=== PATIENT | male | born 1950 | race Caucasian/White ===

== ENCOUNTER 2024-05-06 17:33 | Inpatient (IN) ==
--- NOTE | 2024-05-06 17:41 | Emergency Department Note ---
ED Provider Note NAME: SIENNA MELENEDZ AGE: 73 SEX: M : 1950 ARRIVES VIA: Walk-In INFORMANT: [Patient][, ] ED PROVIDER(S): [Lev Stewart MD] CHIEF COMPLAINT: [] MEDICAL DECISION MAKING: [] Discussion w/ other healthcare providers: [None] Prior /Outside records reviewed: [none] Differential diagnosis: [] Diagnostics, as interpreted by me: ECG: [none] Cardiac monitoring: An order was placed for continuous cardiac monitoring. The monitor shows a rate of [] with [] rhythm. [Patient was placed on pulse oximetry] Medical decision rules: [none] Imaging studies: [I informally interpreted the patient's [] with formal report to follow.] [] HPI: [] PAST MEDICAL HISTORY: [See Below] PAST SURGICAL HISTORY: [See Below] SOCIAL HISTORY: [See Below] HOME MEDICATIONS: [See Below] ALLERGIES: [See Below] VITALS: [See Below] PHYSICAL EXAMINATION: GENERAL: NAD, non-toxic. EYE EXAM: Normal conjunctiva. PERRL, no anisocoria and EOM's grossly intact w/o pain. OROPHARYNX: Moist mucus membranes, grossly normal dentition. NECK: Trachea midline, no stridor. [Supple, no nuchal rigidity, no adenopathy, non-tender. No signs of meningismus. FROM of the neck with good chin to chest and neck extension.] LUNGS: Clear to auscultation. Normal chest wall mechanics. HEART: NSR, no MRG. ABDOMEN: Abdomen soft, non-tender, no masses, no rebound or guarding. BACK: No CVA TTP. SKIN: No rashes and no bruising. UPPER EXTREMITIES: Upper extremities are grossly normal. LOWER EXTREMITIES: Grossly normal, no edema. NEURO EXAM: A&O x3, cranial nerves II-XII grossly intact, normal speech, moves all 4 extremities. Past Med/Surg History Problem List Social History Smoking Status: Never smoker Feels Safe at Home: Yes Allergies Allergies Allergy/AdvReac Type Severity Reaction Status Date / Time No Known Allergies Allergy Mild NONE Verified 01/10/09 16:01 Home Meds Home Medications Medication Instructions Recorded Confirmed CORAL CALCIUM 1,500 mg PO DAILY ##0 01/10/09 Fish Oil ([place]-3) 1 cap PO DAILY ##0 01/10/09 Multivitamin 1 tab PO DAILY ##0 01/10/09 Tramadol (Ultram) 50 mg PO Q8HR ##0 01/10/09 Results & Data (ED) Vital Signs Vital Signs - 24 hr 05/06/24 17:35 Temperature 39.4 C H Temperature Source Oral Pulse Rate 118 H Pulse Rhythm Regular Pulse Strength Normal Respiratory Rate 20 Respiratory Effort / Characteristics Non-Labored Spontaneous Respiratory Depth Normal Respiratory Pattern Regular Blood Pressure 174/79 H Blood Pressure Mean 110 Pulse Oximetry 97 Oxygen Delivery Method Room Air Sepsis Recent Fever Within 48 Hours Yes Sepsis New/Unexplained Change in Mental Status Yes Sepsis Action Taken by Nursing Physician Notified Discharge Plan Visit Data Chief Complaint: Knee Injury/Pain Stated Complaint: KNEE INFECTED ED Provider: Lev Stewart Forms Stand Alone Forms: [facility] [employer] Prescriptions Prescriptions: No Action CORAL CALCIUM 1,500 mg PO DAILY Qty: 0 Fish Oil ([place]-3) 1 EA capsule 1 cap PO DAILY Qty: 0 Multivitamin tablet 1 tab PO DAILY Qty: 0 Tramadol (Ultram) 50 MG tablet 50 mg PO Q8HR Qty: 0 Patient Comments: PRN PAIN Referrals Referrals: Norman Balderas M.D. [Primary Care Provider] -
--- NOTE | 2024-05-06 17:43 | Emergency Department Note ---
ED Visit Note I had signed up for the patient but I was notified that the patient was to be a direct admit to be seen by Dr. Chamorro. Patient reportedly was seen by orthopedics today and was referred here for direct admission Dr. Chamorro with inpatient service is aware and care deferred to inpatient medicine team and orthopedics at this time. .
[2024-05-06] MEDS ORDERED: VANCOMYCIN CONSULT ACTIVE PRN (17:54)
--- NOTE | 2024-05-06 17:56 | Emergency Department Note ---
Impression & Plan Septic joint of right knee joint, Status post right knee replacement, Sepsis, Hyponatremia, Anemia ED Provider Note NAME: SIENNA MELENDEZ AGE: 73 SEX: M : 1950 ARRIVES VIA: Walk-In INFORMANT: Patient, family ED PROVIDER(S): Lev Stewart MD CHIEF COMPLAINT: Outpatient referral, septic knee MEDICAL DECISION MAKING: Patient presents due to concern for septic arthritis. IV was established and blood work was obtained patient was treated with empiric antibiotics vancomycin and cefepime. The patient was ordered 2 L of IV fluids and IV Ofirmev. Blood work shows a normal white count hemoglobin of 10.7. Patient does have anemia that is new compared to prior but most recent was from 2022. There were no reports of any right red blood or dark tarry stools. Kidney function is unremarkable. Hyponatremia at 132. The patient's initial lactate of 2.9. Patient did receive the 2 L. Repeat lactic 1.6. Patient's chest x-ray shows basilar linear densities may be atelectatic versus pneumonia. I did speak the on-call hospitalist service and the patient was admitted by Dr. Chamorro. Discussion w/ other healthcare providers: Dr. Chamorro inpatient medicine service Prior /Outside records reviewed: None Differential diagnosis: Septic joint, dehydration, UTI, pneumonia, metabolic derangment, electrolyte abnormalities, hypovolemia, anemia, cellulitis among others were considered. Diagnostics, as interpreted by me: ECG: Sinus tachycardia, rate of 108, normal intervals, normal axis no ST elevations or T WI. Cardiac monitoring: An order was placed for continuous cardiac monitoring. The monitor shows a rate of 114 with tachycardic and regular rhythm. Patient was placed on pulse oximetry Medical decision rules: None Imaging studies: I informally interpreted the patient's chest x-ray does not show obvious pneumothorax with formal report to follow. HPI: Patient presents due to concern for infected right knee joint. I had initially signed up for the patient was told that he was going to be a direct admit but because of the burden of the inpatient team I did go and see the patient as he had abnormal vital signs admitted for sepsis. Patient reports that he developed some worsening swelling fevers and chills over the weekend was seen in clinic on Saturday by Dr. Nixon and did have arthrocentesis completed was called with the results and was told that he infected knee and would return for washout tomorrow. Patient has been on cefadroxil since he had a debridement completed by Dr. Galvan on the . Patient states that he did have a partial replacement of the right knee after his initial 1 had a piece of the hardware that failed from 10 to 15 years prior and this was last year. Patient states that since this replacement of his PCP has had 3 separate visits to have the knee drained. Patient denies any chest pains or shortness of breath. Patient has been taking Celebrex and Tylenol. The patient also has been taking the prescription narcotic medication which has helped some of his pain. Patient denies any falls or trauma. Patient denies any cough or fever no urinary symptoms no nausea vomiting or diarrhea. PAST MEDICAL HISTORY: See Below PAST SURGICAL HISTORY: See Below SOCIAL HISTORY: See Below HOME MEDICATIONS: See Below ALLERGIES: See Below VITALS: See Below PHYSICAL EXAMINATION: GENERAL: NAD, non-toxic. EYE EXAM: Normal conjunctiva. PERRL, no anisocoria and EOM's grossly intact w/o pain. OROPHARYNX: Moist mucus membranes, grossly normal dentition. NECK: Trachea midline, no stridor. LUNGS: Clear to auscultation. Normal chest wall mechanics. HEART: Tachycardic and regular, no MRG. ABDOMEN: Abdomen soft, non-tender, no masses, no rebound or guarding. BACK: No CVA TTP. SKIN: No rashes and no bruising. UPPER EXTREMITIES: Upper extremities are grossly normal. LOWER EXTREMITIES: Right knee with associated swelling and redness, calor, decreased range of motion, compartments are soft distally. NEURO EXAM: A&O x3, cranial nerves II-XII grossly intact, normal speech, moves all 4 extremities. Past Med/Surg History Problem List (Updated 05/06/24 @ 23:23 by Lev Stewart MD) Anemia (Acute) Hyponatremia (Acute) Sepsis (Acute) Status post right knee replacement (Acute) Septic joint of right knee joint (Acute) Social History Smoking Status: Never smoker Feels Safe at Home: Yes Allergies Allergies Allergy/AdvReac Type Severity Reaction Status Date / Time No Known Allergies Allergy Mild NONE Verified 05/06/24 19:36 Home Meds Home Medications Medication Instructions Recorded Confirmed aspirin 81 mg tablet,delayed 81 mg PO DAILY 05/06/24 05/06/24 release cefadroxil 500 mg capsule 500 mg PO BID 05/06/24 05/06/24 celecoxib 200 mg capsule 200 mg PO BID PRN Pain 05/06/24 05/06/24 oxycodone 5 mg tablet 5 mg PO Q4H PRN Pain 05/06/24 05/06/24 Results & Data (ED) Vital Signs Vital Signs - 24 hr 05/06/24 17:35 05/06/24 17:57 Temperature 39.4 C H Temperature Source Oral Pulse Rate 118 H 112 H Pulse Rhythm Regular Pulse Strength Normal Respiratory Rate 20 Respiratory Effort / Characteristics Non-Labored Spontaneous Respiratory Depth Normal Respiratory Pattern Regular Blood Pressure 174/79 H Blood Pressure Mean 110 Pulse Oximetry 97 Oxygen Delivery Method Room Air Sepsis Recent Fever Within 48 Hours Yes Sepsis New/Unexplained Change in Mental Status Yes Sepsis Action Taken by Nursing Physician Notified Home Medications Current Medication List: was personally reviewed by me Laboratory Data Attestation: I reviewed the patient's lab results. 05/06/24 18:12 05/06/24 18:12 Lab Results 05/06/24 Range/Units 18:12 WBC 5.76 (4.8-10.8) K/ul RBC 3.56 L (4.70-6.10) M/uL Hgb 10.7 L (14.0-18.0) g/dl Hct 31.2 L (42.0-52.0) % MCV 87.6 (80.0-100.0) fL MCH 30.1 (25.0-34.0) pg MCHC 34.3 (32.0-36.0) g/dL RDW Std Deviation 40.6 (36.4-46.3) fL RDW Coeff of Rachel 12.5 (11.5-14.5) % Plt Count 266 (130-400) K/uL MPV 9.4 (9.4-12.4) fL Immature Gran % (Auto) 0.3 % Neut % (Auto) 83.8 % Lymph % (Auto) 6.6 % Kendall % (Auto) 8.7 % Eos % (Auto) 0.3 % Baso % (Auto) 0.3 % Neut # (Auto) 4.82 (1.40-6.50) K/uL Lymph # (Auto) 0.38 L (1.20-3.40) K/uL Kendall # (Auto) 0.50 (0.11-0.59) K/uL Eos # (Auto) 0.02 (0.00-0.50) K/uL Baso # (Auto) 0.02 (0.00-0.20) K/uL Immature Gran # (Auto) 0.02 (0.01-0.20) K/uL PT 10.7 (9.0-12.0) Seconds INR 1.0 (0.9-1.1) APTT 29 (21-31) Seconds PTT Ratio 1.1 Sodium 132 L (136-145) mmol/L Potassium 3.9 (3.5-5.1) mmol/L Chloride 99 (98-107) mmol/L Carbon Dioxide 23 (21-32) mmol/L Anion Gap 10 (3-11) BUN 18 (6-23) mg/dl Creatinine 0.85 (0.6-1.4) mg/dl Est Cr Clr Drug Dosing 87.5 ml/min Est GFR ( Amer) 101.6 ml/min Est GFR (Non-Af Amer) 87.7 ml/min BUN/Creatinine Ratio 21.2 H (10-20) Glucose 170 H (70-99(Fasting)) mg/dl Lactate 2.9 H* (0.4-2.0) mmol/L Calcium 8.7 (8.6-10.3) mg/dl Magnesium 1.9 (1.7-2.4) mg/dl Total Bilirubin 0.7 (0.2-1.0) mg/dl Direct Bilirubin 0.2 (0-0.2) mg/dl AST 29 (13-39) U/L ALT 46 (7-52) U/L Alkaline Phosphatase 117 H (34-104) U/L Troponin I High Sens 9.7 (0-20) pg/ml Total Protein 6.8 (6.0-8.3) gm/dl Albumin 3.8 (3.4-5.0) gm/dl Procalcitonin 0.22 (0-0.5) ng/ml Blood Type A Positive Antibody Screen NEGATIVE Administered Medications Daptomycin 475 mg/ Syringe 9.5 mls @ 4.75 mls/min IV Q24H JOSE GUADALUPE; Protocol Stop: 06/17/24 19:29 Last Admin: 05/06/24 20:07 Dose: 4.75 mls/min Documented By: EMB Discontinued Medications Sodium Chloride (Nss) 1,000 mls @ 999 mls/hr IV .Q1H1M JOSE GUADALUPE Stop: 05/06/24 20:00 Last Infusion: 05/06/24 21:18 Dose: Infused Documented By: Admin: 05/06/24 20:08 Dose: 999 mls/hr Documented By: Infusion: 05/06/24 19:43 Dose: Infused Documented By: Admin: 05/06/24 18:42 Dose: 999 mls/hr Documented By: KEMI Vancomycin HCl 1,750 mg/ (Sodium Chloride) 535 mls @ 200 mls/hr IV NOW ONE Stop: 05/06/24 20:34 Last Admin: 05/06/24 19:33 Dose: Not Given Documented By: EMB Cefepime HCl (Maxipime) 2,000 mg in 20 mls @ 5 mls/min IV NOW STA; Protocol Stop: 05/06/24 17:57 Last Admin: 05/06/24 18:47 Dose: 5 mls/min Documented By: KEMI Acetaminophen (Ofirmev) 1,000 mg in 100 mls @ 400 mls/hr IV NOW STA Stop: 05/06/24 18:08 Last Infusion: 05/06/24 19:32 Dose: Infused Documented By: Admin: 05/06/24 18:46 Dose: 400 mls/hr Documented By: KEMI Sodium Chloride (Nss) 500 mls @ 999 mls/hr IV .Q31M ONE Stop: 05/06/24 19:39 Last Admin: 05/06/24 21:18 Dose: 999 mls/hr Documented By: EMB Morphine Sulfate (Morphine Sulfate 2 Mg/Ml Carp) 2 mg IV NOW STA Stop: 05/06/24 20:02 Last Admin: 05/06/24 20:04 Dose: 2 mg Documented By: EMB Imaging Data Radiologist's Impression: Chest X-Ray 05/06/24 17:54 XR chest 1V portable HISTORY: Sepsis COMPARISON: Chest 07/05/2023. FINDINGS: No pneumothorax. No pleural effusions. The heart is normal in size. Mild interstitial thickening which is likely chronic. Calcified granulomas within the lung bases again noted. Cervical spinal fusion hardware and a right shoulder prosthesis are present. Left basilar linear densities are noted. No evidence for pulmonary edema. No acute fractures. IMPRESSION: 1. A few left basilar linear densities. This favors subsegmental atelectasis. A pneumonia could also have a similar appearance in the appropriate clinical setting. 2. Mild diffuse interstitial thickening persists. This is likely chronic. ACT 112: Negative or not required by law. Electronically signed by: Luke Pierce M.D. 05/06/2024 6:24 PM Discharge Plan Visit Data Chief Complaint: Knee Injury/Pain Stated Complaint: KNEE INFECTED ED Provider: Lev Stewart Discharge Problem: Septic joint of right knee joint, Status post right knee replacement, Sepsis, Hyponatremia, Anemia Patient Disposition: Admitted As Inpatient Discharge Instructions Interventions: ED Discharge Assessment Last Done: 05/06/24 22:26 Discharge Problem: Septic joint of right knee joint Qualifiers: Septic arthritis organism: due to unspecified organism Qualified Code(s): M00.9 - Pyogenic arthritis, unspecified Sepsis Qualifiers: Sepsis type: sepsis due to unspecified organism Sepsis acute organ dysfunction status: without acute organ dysfunction Qualified Code(s): A41.9 - Sepsis, unspecified organism Anemia Qualifiers: Anemia type: unspecified type Qualified Code(s): D64.9 - Anemia, unspecified
--- NOTE | 2024-05-06 18:14 | History & Physical Report ---
Date of Service May 06, 2024 Assessment & Plan (1) Septic joint of right knee joint: (2) Status post right knee replacement: Plan RIGHT Septic Knee Ortho consulted. Expect operative intervention 05/07/2024. Prior history of right knee replacement -Outpatient arthrocentesis with elevated leukocytes, cultures positive for gram- negative bacilli Patient is febrile, tachycardic on presentation to the ER meet sepsis criteria Blood cultures ordered, patient has pending joint cultures pending Given sepsis antibiotics expanded to cefepime/daptomycin Lactate elevated, repeat post fluids pending 30 cc/kg IBW approximately 2500 cc. +500 cc ordered to meet sepsis recomm endation Follow UC/BC -No cardiac, pulmonary, renal, or pulmonary comorbidities. No history of diabetes/insulin use. RCRI 0 points, class I risk. Tachycardia EKG sinus tachycardia Denies anginal pain, history of chest pain. No Struve A-fib Suspect reactive due to pain and sepsis. Improving with fluid and antipyretics Troponin is negative DVT prophylaxis: Frankl prophylaxis held pending surgical invention CODE STATUS: Full code Disposition: M/T 2/2 sepsis and tachycardia Diet: N.p.o. midnight History of Present Illness Primary Care Provider: Norman Balderas 73-year-old male with past medical history of RIGHT knee infection, hx of replacement with Dr. Miner in the distant past. Had a spacer revision in 2022. Outpatient debridement ~10 days ago. Was on cefadroxil ppx. Outpatient knee tap yesterday/ +knee pain, fevers, chills over the weekend. KNee tap with +WBCs, GNB. Has been on cefadroxil. No missed doses. Feels the knee has greatly worsened over the last 48 hours. Has been told that he should not bend his knee, but has been tender to the touch and is much worse with any movement. Has had fever chills and night sweats. Denies other medical problems. No history of CHF or ischemic disease. Denies any chest pain on exertion in the past few weeks/months. No kidney disease, no lung disease. Denies medication allergies. Does get nauseous postanesthesia. No tobacco use. Rare social alcohol use. No daily use Full code Allergies Allergy/AdvReac Type Severity Reaction Status Date / Time No Known Allergies Allergy Mild NONE Verified 01/10/09 16:01 Home Medications Medication Instructions Recorded Confirmed Type CORAL CALCIUM 1,500 mg PO DAILY ##0 01/10/09 History Fish Oil ([place]-3) 1 cap PO DAILY ##0 01/10/09 History Multivitamin 1 tab PO DAILY ##0 01/10/09 History Tramadol (Ultram) 50 mg PO Q8HR ##0 01/10/09 History Past Med/Surg History Problem List (Updated 05/06/24 @ 19:15 by Schuyler Chamorro MD) Status post right knee replacement Septic joint of right knee joint Social History Smoking Status: Never smoker Feels Safe at Home: Yes Physical Exam Physical Exam: General: A&Ox3. NAD. Cooperative. HEENT: Atraumatic, normocephalic. Pulm: CTAB A&P. -wheezes, -rales, -rhonchi. Symmetrical chest rise. No increased work of breathing. No respiratory distress. Cardiac: RRR, -mrg. Radial pulses intact and symmetrical. Abdominal: Nontender, nondistended, soft. BS present. Ext: RIGHT knee swollen, TTP, with anterior demarcated erythema marked with surgical pen. 2x anterior incisions well healing and without discharge. Results & Data Results & Data Vital Signs (Past 12 Hours) Vital Signs Temp Pulse Resp BP Pulse Ox O2 Del Method 05/06/24 17:57 112 H 05/06/24 17:35 39.4 C H 118 H 20 174/79 H 97 Room Air PG Care Time/CCT Total # of Minutes Spent Total Time Spent with Patient: Total time spent is greater than 50% in coordination of care (as documented) at patient's floor/unit and/or counseling patient: Coding Level of Care Code 24373 INT INP/OBS CARE 3/75MIN Diagnoses Septic joint of right knee joint M00.9 Status post right knee replacement Z96.651
--- NOTE | 2024-05-06 18:26 | XRay Report ---
XR chest 1V portable HISTORY: Sepsis COMPARISON: Chest 07/05/2023. FINDINGS: No pneumothorax. No pleural effusions. The heart is normal in size. Mild interstitial thick ening which is likely chronic. Calcified granulomas within the lung bases again noted. Cervical spina l fusion hardware and a right shoulder prosthesis are present. Left basilar linear densities are note d. No evidence for pulmonary edema. No acute fractures. IMPRESSION: 1. A few left basilar linear densities. This favors subsegmental atelectasis. A pneumonia could also have a similar appearance in the appropriate clinical setting. 2. Mild diffuse interstitial thickening persists. This is likely chronic. ACT 112: Negative or not required by law. Electronically signed by: Luke Pierce M.D. 05/06/2024 6:24 PM
[2024-05-06 18:28] LABS: Basophils # (auto) 0.02 K/uL (0.00-0.20); Basophils % (auto) 0.3 %; Eosinophils # (auto) 0.02 K/uL (0.00-0.50); Eosinophils % (auto) 0.3 %; Hematocrit (blood only) 31.2 % (42.0-52.0); Hemoglobin 10.7 g/dl (14.0-18.0); Immature Granulocytes # (auto) 0.02 K/uL (0.01-0.20); Immature Granulocytes % (auto) 0.3 %; Lymphocytes # (auto) 0.38 K/uL (1.20-3.40); Lymphocytes % (auto) 6.6 %; Mean Corpuscular Hemoglobin 30.1 pg (25.0-34.0); Mean Corpuscular Hgb Conc 34.3 g/dL (32.0-36.0); Mean Corpuscular Volume 87.6 fL (80.0-100.0); Mean Platelet Volume 9.4 fL (9.4-12.4); Monocytes % (auto) 8.7 %; Neutrophils # (auto) 4.82 K/uL (1.40-6.50); Neutrophils % (auto) 83.8 %; Platelet Count 266 K/uL (130-400); RDW Coefficient of Variation 12.5 % (11.5-14.5); RDW Standard Deviation 40.6 fL (36.4-46.3); Red Blood Count 3.56 M/uL (4.70-6.10); White Blood Count 5.76 K/ul (4.8-10.8)
[2024-05-06 18:36] LABS: Partial Thromboplastin Ratio 1.1; Partial Thromboplastin Time 29 Seconds (21-31); Prothrombin Time 10.7 Seconds (9.0-12.0)
[2024-05-06] MEDS: SODIUM CHLORIDE 0.9% 1,000 ML IV SCH (18:42)
[2024-05-06] MEDS: ACETAMINOPHEN 1,000 MG/100 ML VIAL IV STA (18:46)
[2024-05-06] MEDS: CEFEPIME 2,000 MG/20 ML VIAL IV STA (18:47)
[2024-05-06 18:49] LABS: Albumin Level 3.8 gm/dl (3.4-5.0); BUN Creatinine Ratio 21.2 (10-20); Bilirubin Direct 0.2 mg/dl (0-0.2); Bilirubin,Total 0.7 mg/dl (0.2-1.0); Calcium 8.7 mg/dl (8.6-10.3); Creatinine Clr Calc Pharmacy 87.5 ml/min; Est GFR (African American) 101.6 ml/min; Est GFR (Non-African American) 87.7 ml/min; Magnesium 1.9 mg/dl (1.7-2.4); Potassium 3.9 mmol/L (3.5-5.1); Total Protein 6.8 gm/dl (6.0-8.3)
[2024-05-06 18:55] LABS: Troponin I High Sensitivity 9.7 pg/ml (0-20)
[2024-05-06] MEDS: VANCOMYCIN HCL 1,750 MG in SODIUM CHLORIDE 0.9% 500 ML IV ONE (19:33)
[2024-05-06] MEDS: MoRPHine SULFATE 2 MG/ML CARP IV STA (20:04)
[2024-05-06] MEDS: DAPTOmycin 475 MG in SYRINGE 0 ML IV SCH (20:07)
[2024-05-06] MEDS: SODIUM CHLORIDE 0.9% 500 ML IV ONE (21:18)
[2024-05-07] MEDS: CEFEPIME 2,000 MG in SYRINGE 0 ML IV SCH (01:33)
[2024-05-07] MEDS: MoRPHine SULFATE 2 MG/ML CARP IV PRN (01:33)
[2024-05-07 05:22] LABS: Basophils # (auto) 0.02 K/uL (0.00-0.20); Basophils % (auto) 0.4 %; Eosinophils # (auto) 0.02 K/uL (0.00-0.50); Eosinophils % (auto) 0.4 %; Hematocrit (blood only) 27.6 % (42.0-52.0); Hemoglobin 9.2 g/dl (14.0-18.0); Immature Granulocytes # (auto) 0.02 K/uL (0.01-0.20); Immature Granulocytes % (auto) 0.4 %; Lymphocytes # (auto) 0.83 K/uL (1.20-3.40); Lymphocytes % (auto) 16.4 %; Mean Corpuscular Hemoglobin 29.8 pg (25.0-34.0); Mean Corpuscular Hgb Conc 33.3 g/dL (32.0-36.0); Mean Corpuscular Volume 89.3 fL (80.0-100.0); Mean Platelet Volume 9.6 fL (9.4-12.4); Monocytes # (auto) 0.85 K/uL (0.11-0.59); Monocytes % (auto) 16.8 %; Neutrophils # (auto) 3.31 K/uL (1.40-6.50); Neutrophils % (auto) 65.6 %; Platelet Count 239 K/uL (130-400); RDW Coefficient of Variation 12.6 % (11.5-14.5); RDW Standard Deviation 41.1 fL (36.4-46.3); Red Blood Count 3.09 M/uL (4.70-6.10); White Blood Count 5.05 K/ul (4.8-10.8)
[2024-05-07 05:36] LABS: BUN Creatinine Ratio 20.3 (10-20); Calcium 7.8 mg/dl (8.6-10.3); Creatinine Clr Calc Pharmacy 100.5 ml/min; Est GFR (African American) 107.6 ml/min; Est GFR (Non-African American) 92.8 ml/min
[2024-05-07] MEDS: LACTATED RINGER'S 1,000 ML IV SCH ×2 (06:05→13:06)
--- NOTE | 2024-05-07 07:13 | Anesthesiology Consultation ---
Date of Service May 07, 2024 Assessment & Plan Chart Review Chart Review: toe puller initiated History Surgery Operation Date: 05/07/24 07:00 Proposed Procedures p Right Total Knee Arthroplasty DAIR Procedure, Medial Retinacular Repair - Robert Miner MD Height/Weight Height: 6 ft Weight: 93 kg Allergies Allergy/AdvReac Type Severity Reaction Status Date / Time No Known Allergies Allergy Mild NONE Verified 05/06/24 19:36 Medications Home Medications Medication Instructions Recorded Confirmed Last Taken aspirin 81 mg tablet,delayed 81 mg PO DAILY 05/06/24 05/06/24 05/06/24 release cefadroxil 500 mg capsule 500 mg PO BID 05/06/24 05/06/24 05/06/24 08:00 celecoxib 200 mg capsule 200 mg PO BID PRN Pain 05/06/24 05/06/24 Unknown oxycodone 5 mg tablet 5 mg PO Q4H PRN Pain 05/06/24 05/06/24 Unknown Active Medications Generic Name Dose Route Start Last Admin Trade Name Freq PRN Reason Stop Dose Admin Daptomycin 475 mg/ Syringe 9.5 mls @ 4.75 mls/min 05/06/24 19:30 05/06/24 20:07 IV 06/17/24 19:29 4.75 mls/min Q24H JOSE GUADALUPE Administration Protocol Cefepime HCl 2,000 mg/ Syringe 20 mls @ 5 mls/min 05/07/24 02:00 05/07/24 01:33 IV 06/18/24 01:59 5 mls/min Q8H JOSE GUADALUPE Administration Protocol Lactated Ringer's 1,000 mls @ 80 mls/hr 05/06/24 19:30 05/07/24 06:05 Lr IV 06/05/24 19:29 Not Given .[id number] JOSE GUADALUPE Morphine Sulfate 2 mg 05/06/24 22:27 05/07/24 01:33 Morphine Sulfate 2 Mg/Ml Carp IV 05/20/24 22:26 2 mg Q4H PRN Administration Pain, second line Social History Smoking Status: Never smoker Hx Alcohol Use: Yes Alcohol type: beer alcohol intake frequency: a few times a month Hx Substance Use: No Physical Exam Vital Signs Last Vital Signs Temp 98.5 F 05/07/24 01:35 Pulse 82 05/07/24 01:35 Resp 22 05/07/24 01:35 BP 139/70 05/07/24 01:35 Pulse Ox 95 05/07/24 01:35 O2 Del Method Room Air 05/07/24 01:35 Testing Laboratory Results 05/07/24 04:12 05/07/24 04:12 PT 10.7 Seconds (9.0-12.0) 05/06/24 18:12 INR 1.0 (0.9-1.1) 05/06/24 18:12 APTT 29 Seconds (21-31) 05/06/24 18:12 Blood Type A Positive 05/06/24 18:12 Antibody Screen NEGATIVE 05/06/24 18:12 Electrocardiogram Date: 05/06/24 ST @ 108 bpm Minimal voltage criteria for LVH Chest X-Ray Date: 05/06/24 A few left basilar linear densities. This favors subsegmental atlectasis. A pneumonia could also have a similar appearance in the appropriate clinical setting. Mild diffuse interstitial thickening persists. This is likely chronic.
[2024-05-07] MEDS: ACETAMINOPHEN 325 MG TAB PO PRN (07:16)
[2024-05-07 09:55] LABS: Estimated Average Glucose 111 mg/dl; Hemoglobin A1C 5.5 % (4.5-5.6)
[2024-05-07 10:36] LABS: Appearance Urine Clear (Clear); Bacteria Urine Automated None Seen (None Seen); Bilirubin Urine Negative (Negative); Blood Urine Negative (Negative); Cast Urine Automated 0-2 /lpf (0-2); Color Urine Yellow; Epithelial Cell Urine Auto 0-2 /hpf (0-2); Glucose Urine UA Negative (Negative); Ketones Urine Negative (Negative); Leukocyte Esterase Urine Negative (Negative); Nitrite Urine Negative (Negative); Protein Urine 1+ (Negative); RBC Urine Automated 0-2 /hpf (0-2); Urobilinogen Urine Positive (Negative); WBC Urine Automated 0-5 /hpf (0-5); pH Urine 5.5 (4.5-7.5)
[2024-05-07] MEDS ORDERED: PROMETHAZINE HCL 6.25 MG in SODIUM CHLORIDE 0.9% 50 ML IV PRN (12:56)
[2024-05-07] MEDS ORDERED: HYDROmorphone INJ 1 MG/ML SYRINGE IV PRN (12:56)
[2024-05-07] MEDS ORDERED: ePHEDrine sulfate 50 MG/ML AMP IV PRN (12:56)
[2024-05-07] MEDS ORDERED: ATROPINE SULFATE 0.1 MG/ML 10ML SYR IV PRN (12:56)
[2024-05-07] MEDS ORDERED: ONDANSETRON INJ 2 MG/ML 2 ML VIAL IV PRN ×2 (12:56→17:34)
[2024-05-07] MEDS ORDERED: ROPIVACAINE 0.5% 5 MG/ML 30 ML VIAL ONE (13:01)
--- NOTE | 2024-05-07 13:12 | History & Physical Bridge Note ---
Date of Service May 07, 2024 History & Physical Bridge Note I have examined the patient, reviewed the History & Physical and in the interval since the performance of the History & Physical I have noted the following changes of clinical significance: no changes noted
--- NOTE | 2024-05-07 13:32 | History & Physical Bridge Note ---
Date of Service May 07, 2024 History & Physical Bridge Note I have examined the patient, reviewed the History & Physical and in the interval since the performance of the History & Physical I have noted the following changes of clinical significance: no changes notedPatient is planned for a day her procedure debridement and antibiotic irrigation polyethylene exchange and retention of components right total knee replacement
[2024-05-07] MEDS ORDERED: PROPOFOL IV EMULSION 10 MG/ML 20 ML VIAL IV ONE (13:38)
[2024-05-07] MEDS ORDERED: MIDAZOLAM HCL 1 MG/ML 2ML VIAL ONE (13:38)
[2024-05-07] MEDS ORDERED: fentaNYL citrate PF 100 MCG/2 ML VIAL ONE ×2 (13:50→14:20)
[2024-05-07] MEDS ORDERED: DEXAMETHASONE SOD INJ 4 MG/ML VIAL ONE (14:03)
[2024-05-07] MEDS ORDERED: PROPOFOL IV EMULSION 10 MG/ML 100 ML VIAL IV ONE ×2 (14:03→15:25)
[2024-05-07] MEDS ORDERED: ONDANSETRON INJ 2 MG/ML 2 ML VIAL ONE (14:03)
[2024-05-07] MEDS ORDERED: GLYCOPYRROLATE 0.2 MG/ML VIAL ONE (14:07)
[2024-05-07] MEDS ORDERED: diphenhydrAMINE 50 MG/ML VIAL ONE (14:07)
[2024-05-07] MEDS ORDERED: ACETAMINOPHEN 1000 MG/100 ML IV IV ONE (14:27)
[2024-05-07] MEDS ORDERED: KETOROLAC 30 MG/ML VIAL ONE (15:10)
--- NOTE | 2024-05-07 15:14 | Post Operative Brief Note ---
Immediate Post Op Note Date of Surgery May 07, 2024 Pre & Post Diagnosis Operation Date: 05/07/24 07:00 Pre-Op Diagnosis: Right Septic Knee Post-Op Diagnosis: Right Septic Knee I identified the patient and participated in the time-out.: Yes Procedure Operation Date: 05/07/24 07:00 Actual Procedures p Right Total Knee Arthroplasty, Debridement, antibiotics, and implant retention (DAIR) Procedure, Medial Retinacular Repair, Polyethylene exchange(Right) - Robert Miner MD Surgeon Robert Miner MD [employer] Silvino Barrios PACarolynn Estimated Blood Loss 50 Findings Consistent with Post-Op Diagnosis Drains Hemovac Drain
--- NOTE | 2024-05-07 15:29 | Operative Report ---
Post Operative Report Pre & Post Diagnosis Operation Date: 05/07/24 07:00 Pre-Op Diagnosis: Right Septic Knee Post-Op Diagnosis: Right Septic Knee I identified the patient and participated in the time-out.: Yes Procedure Operation Date: 05/07/24 07:00 Actual Procedures p Right Total Knee Arthroplasty, Debridement, antibiotics, and implant retention (DAIR) Procedure, Medial Retinacular Repair, Polyethylene exchange(Right) - Robert Miner MD Surgeon Robert Miner MD Sort Supervisor Silvino Barrios PA-C Estimated Blood Loss 50 Findings Consistent with Post-Op Diagnosis synovial lining was definitely inflamed the there was a great deal of what appeared to be inflammatory fluid but the purulence was not gross. Specimens Explanted polyethylene and synovial tissue Drains x 1 Complications none Description of Procedure patient is a 73-year-old male who is about 2 weeks status post an arthroscopic exploration for chronic knee effusions. He was seen in the office a few days earlier with acute swelling and pain again after the arthroscopic procedure. His knee was aspirated for what appeared to be bloody fluid and sent to the lab. 24-hour laboratory culture showed gram-negative bacilli which are now growing Enterobacter cloacae. He was taken to the operating room urgently for a Derra procedure in an attempt to cure the infection and save his knee. Following satisfactory general anesthesia the patient was supine on the operating room table. A tourniquet was placed on the lower extremity. The lower extremity was prepared with ChloraPrep and draped sterilely. Following gravity exsanguination the tourniquet was inflated to 300 mmHg. A surgical timeout was performed. Using the midline knee incision a midline incision was made. Flaps were elevated. The knee showed a tense effusion. A medial parapatellar arthrotomy was performed encountering a great deal of 0 sanguinous and/or seropurulent type material. Cultures were taken. The synovial lining was injected but was not destroyed in any way. The Versajet was used in a systematic fashion to debride the inflamed synovial tissue starting in the medial gutter, the suprapatellar pouch, lateral gutter, the infrapatellar region and the lateral gutter and then the medial side. A total of 2 L of Versajet irrigation was used to clean the synovial lining which looked much equipment or machinery cleaner upon completion. The tibial polyethylene was removed. This allowed access to the posterior recess of the knee which also was cleaned using the Versajet. At this point the knee looked much equipment or machinery cleaner. The knee was then irrigated with 6 L of pulsatile lavage in a systematic fashion again working in both superior medial lateral gutters the posterior recess. Following irrigation with 6 L of pulsatile lavage a Betadine soak was performed. Scrub brush and tooth brush was used to mechanically agitate the metal implants getting into the recesses of the tibial baseplate and also to scrub the patellar button. After 5 minutes of Betadine soak the knee was irrigated with 500 cc of experience irrigation and looked clean. The entire surgical team then broke scrub rescrubbed fresh drapes and a clean instruments were brought into the room. Again the knee looked much improved. An 8 x 13 fresh polyethylene insert was placed and locked into place. The wound was irrigated with another 500 cc of experience irrigation. Hemovac drain was placed. The attenuated medial capsule which was most likely attenuated by chronic effusions was then addressed. The capsule was closed in a pants over vest fashion using #1 PDS. This affected a significant tightening of the medial side of the knee. The overlap tissue was then oversewn using 2 oh medicated Vicryl.. The subcutaneous tissues were then closed with interrupted [id number]-[id number] sutu res of 2 oh medicated Vicryl. The skin was closed with surgical anna. A- pressure wound dressing followed by a compressive bandage was applied. The tourniquet was deflated at a total time of 80 minutes at 300 mmHg. Patient was transferred back to his bed and taken to the recovery room having tolerated the procedure in good condition. Note: Silvino GELLER was present and assisted throughout due to the complicated nature of this case. He help with preparation and set up, he first assisted throughout. He assisted with hemostasis and exposure throughout the procedure. He also closed the capsular subcutaneous and skin layers and applied the postop dressing. I attest to the content of the Intraoperative Record and any orders documented therein. Any exceptions are noted below.
--- NOTE | 2024-05-07 16:00 | Infectious Disease Consult ---
Date of Consultation May 07, 2024 Assessment & Plan (1) Prosthetic joint infection: Plan Problems: #R TKA c/b PJI s/p DAIR (05/07/24) Micro: 05/07 OR cx R knee: pending 05/06 BCx: pending 05/05 R knee arthrocentesis: Enterobacter cloacae (S cefepime, cipro, erta, levo, TMP/SMX) Abx: Cefepime 05/06 - present Daptomycin 05/06 - present Impression: 73 yo M with history of bilateral TKA (~13.5 years ago), s/p R TKA revision ~2022 (due to hardware failure, not infection), who developed swelling, warmth, pain in his R knee, admitted with R TKA PJI s/p DAIR (05/07/24). Pt had undergone an arthroscopic exploration for chronic knee effusions ~2 weeks prior, and was subsequently placed on cefadroxil. He developed worsening swelling, fevers, chills over the weekend. An arthrocentesis was done on 05/05 in clinic, which showed 26,327 WBCs, 93% PMNs, no crystals. Culture grew Enterobacter cloacae. He was directly admitted for PJI. On presentation, he was febrile to 39.4, HR 118. Labs showed WBC 5.76, lactate 2.9. He was started on daptomycin, cefepime. He was taken to the OR on 05/07 for DAIR procedure. ID is consulted for antibiotic recommendations. Note that pt was on cefadroxil prior to the 05/05 arthrocentesis and the OR, which could affect culture yield. Recommendations: - Can continue dapto, cefepime for now - Follow-up OR cultures - Anticipate 6 weeks of IV antibiotics via PICC, followed by suppressive PO antibiotics for minimum of 1 year, which can be extended if pt is tolerating the PO antibiotic well. Will continue to follow. Consultation Information This patient recommendation is based on a telemedicine consult request which was completed asynchronously through chart review and information provided by the primary physician. The patient was not seen or examined today. The evaluation is consultative in nature and all patient care and treatment decisions can either be accepted or rejected by the patient's primary hospital-based treating physician using their own independent medical judgment for their patient. Cover Cutter Machine contact information: Please call [facility] [phone]. (Phone Number For Physician Use Only) Time Spent Reviewing Chart: 31+ minutes History of Present Illness Reason for Consultation: R TKA PJI s/p DAIR Attending Physician: Brandon Leon MD History of Present Illness 73 yo M with history of bilateral TKA (~13.5 years ago), s/p R TKA revision ~2022 (due to hardware failure, not infection), who developed swelling, warmth, pain in his R knee, admitted with R TKA PJI. Pt had undergone an arthroscopic exploration for chronic knee effusions ~2 weeks prior, and was subsequently placed on cefadroxil. He developed worsening swelling, fevers, chills over the weekend. An arthrocentesis was done on 05/05 in clinic, which showed 26,327 WBCs, 93% PMNs, no crystals. Culture grew Enterobacter cloacae. He was directedly admitted for PJI. On presentation, he was febrile to 39.4, HR 118. Labs showed WBC 5.76, lactate 2.9. CXR showed few L basilar linear densities favoring subsegmental atelectasis. He was started on daptomycin, cefepime. He was taken to the OR on 05/07 for DAIR procedure. ID is consulted for antibiotic recommendations. Allergies Allergy/AdvReac Type Severity Reaction Status Date / Time No Known Allergies Allergy Mild NONE Verified 05/06/24 19:36 Home Medications Medication Instructions Recorded Confirmed Type aspirin 81 mg tablet,delayed 81 mg PO DAILY 05/06/24 05/06/24 History release cefadroxil 500 mg capsule 500 mg PO BID 05/06/24 05/06/24 History celecoxib 200 mg capsule 200 mg PO BID PRN Pain 05/06/24 05/06/24 History oxycodone 5 mg tablet 5 mg PO Q4H PRN Pain 05/06/24 05/06/24 History Patient History Surgical History (Updated 05/07/24 @ 12:59 by Zoraida Hernandez RN) Status post reverse arthroplasty of right shoulder S/P left rotator cuff repair H/O cervical spine surgery History of lumbar surgery L-3-L5 History of total knee arthroplasty bilateral Social History Smoking Status: Never smoker Hx Alcohol Use: Yes Alcohol type: beer Hx Substance Use: No Preferred Language: Bol[place]ian Communication Ability: Effective 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 Physical Exam Physical Exam: Pt was not seen Results & Data Vital Signs (Past 12 Hours) Vital Signs Temp Pulse Pulse Resp BP Pulse Ox O2 Del Method 05/07/24 12:59 37.1 C 77 20 141/83 H 100 Room Air 05/07/24 12:25 64 18 129/72 98 Room Air 05/07/24 07:51 81 05/07/24 07:28 83 18 133/66 96 Room Air Laboratory Results Short CBC 05/06/24 05/07/24 Range/Units 18:12 04:12 WBC 5.76 5.05 (4.8-10.8) K/ul Hgb 10.7 L 9.2 L (14.0-18.0) g/dl Hct 31.2 L 27.6 L (42.0-52.0) % Plt Count 266 239 (130-400) K/uL BMP 05/06/24 05/07/24 18:12 04:12 Sodium 132 L 136 Potassium 3.9 4.0 Chloride 99 106 Carbon Dioxide 23 23 BUN 18 15 Creatinine 0.85 0.74 Glucose 170 H 132 H Calcium 8.7 7.8 L Liver Function 05/06/24 Range/Units 18:12 Total Bilirubin 0.7 (0.2-1.0) mg/dl Direct Bilirubin 0.2 (0-0.2) mg/dl AST 29 (13-39) U/L ALT 46 (7-52) U/L Alkaline Phosphatase 117 H (34-104) U/L Albumin 3.8 (3.4-5.0) gm/dl Urine 05/07/24 Range/Units 10:02 Urine Color Yellow Urine Appearance Clear (Clear) Urine pH 5.5 (4.5-7.5) Ur Specific [place] 1.020 (1.000-1.030) Urine Protein 1+ H (Negative) Urine Glucose (UA) Negative (Negative) Diagnostic Findings Chest X-Ray 05/06/24 17:54 XR chest 1V portable HISTORY: Sepsis COMPARISON: Chest 07/05/2023. FINDINGS: No pneumothorax. No pleural effusions. The heart is normal in size. Mild interstitial thickening which is likely chronic. Calcified granulomas within the lung bases again noted. Cervical spinal fusion hardware and a right shoulder prosthesis are present. Left basilar linear densities are noted. No evidence for pulmonary edema. No acute fractures. IMPRESSION: 1. A few left basilar linear densities. This favors subsegmental atelectasis. A pneumonia could also have a similar appearance in the appropriate clinical setting. 2. Mild diffuse interstitial thickening persists. This is likely chronic. ACT 112: Negative or not required by law. Electronically signed by: Luke Pierce M.D. 05/06/2024 6:24 PM Medications Administered Current Inpatient Medications Acetaminophen (Acetaminophen 325 Mg Tab) 650 mg PO Q4H PRN PRN Reason: Pain or Fever Stop: 06/05/24 22:26 Last Admin: 05/07/24 07:16 Dose: 650 mg Atropine Sulfate (Atropine Sulfate 0.1 Mg/Ml 10ml Syr) 0.5 mg IV Q1M PRN PRN Reason: PACU Use-HR<40 &/or Bradycardi Stop: 05/07/24 20:56 Ephedrine Sulfate (Ephedrine Sulfate 50 Mg/Ml Amp) 5 mg IV Q5M PRN PRN Reason: PACU Use Only-SBP<90 mmHg Stop: 05/07/24 20:56 Fentanyl Citrate (Fentanyl Citrate Pf 100 Mcg/2 Ml Vial) 25 mcg IV Q5M PRN PRN Reason: PACU Use Only-Pain Stop: 05/07/24 20:56 Hydromorphone HCl (Hydromorphone Inj 1 Mg/Ml Syringe) 0.25 mg IV Q5M PRN PRN Reason: PACU Use Only-Pain Stop: 05/07/24 20:56 Daptomycin 475 mg/ Syringe 9.5 mls @ 4.75 mls/min IV Q24H JOSE GUADALUPE; Protocol Stop: 06/17/24 19:29 Last Admin: 05/06/24 20:07 Dose: 4.75 mls/min Cefepime HCl 2,000 mg/ Syringe 20 mls @ 5 mls/min IV Q8H JOSE GUADALUPE; Protocol Stop: 06/18/24 01:59 Last Admin: 05/07/24 09:38 Dose: 5 mls/min Lactated Ringer's (Lr) 1,000 mls @ 80 mls/hr IV .[id number] JOSE GUADALUPE Stop: 06/05/24 19:29 Last Admin: 05/07/24 07:18 Dose: 80 mls/hr Promethazine HCl 6.25 mg/ (Sodium Chloride) 50.25 mls @ 204 mls/hr IV ONCE PRN PRN Reason: PACU Use Only-Nausea/Vomiting Stop: 05/07/24 20:56 Lactated Ringer's (Lr) 1,000 mls @ 15 mls/hr IV .Q24H [facility] Stop: 06/06/24 13:14 Last Infusion: 05/07/24 13:47 Dose: Infused Morphine Sulfate (Morphine Sulfate 2 Mg/Ml Carp) 2 mg IV Q4H PRN PRN Reason: Pain, second line Stop: 05/20/24 22:26 Last Admin: 05/07/24 07:15 Dose: 2 mg Ondansetron HCl (Ondansetron Inj 2 Mg/Ml 2 Ml Vial) 4 mg IV ONCE PRN PRN Reason: PACU Use Only-Nausea/Vomiting Stop: 05/07/24 20:56
--- NOTE | 2024-05-07 16:35 | Anesthesiology Progress Note ---
Date of Service May 07, 2024 Anesthesia Post Procedure Vital Signs Vital Signs: Temp Pulse Pulse Resp BP BP BP 05/07/24 16:25 79 16 133/75 05/07/24 16:15 76 18 120/86 05/07/24 16:05 78 19 129/73 05/07/24 15:58 36.5 C 82 22 138/35 L 05/07/24 12:59 37.1 C 77 20 141/83 H 05/07/24 12:25 64 18 129/72 05/07/24 07:51 81 05/07/24 07:28 83 18 133/66 05/07/24 01:35 36.9 C 82 22 139/70 05/07/24 01:35 05/06/24 22:07 75 05/06/24 20:00 38.2 C H 90 18 132/76 05/06/24 17:57 112 H 05/06/24 17:35 39.4 C H 118 H 20 174/79 H Pulse Ox Pulse Ox O2 Del Method O2 Del Method O2 Flow Rate 05/07/24 16:25 94 Room Air 05/07/24 16:15 97 Oxymask 5 05/07/24 16:05 100 Oxymask 5 05/07/24 15:58 95 Oxymask 5 05/07/24 12:59 100 Room Air 05/07/24 12:25 98 Room Air 05/07/24 07:51 05/07/24 07:28 96 Room Air 05/07/24 01:35 95 Room Air 05/07/24 01:35 95 Room Air 05/06/24 22:07 05/06/24 20:00 95 Room Air 05/06/24 17:57 05/06/24 17:35 97 Room Air Pain Intensity Right Knee: Pain Intensity: 10 Transfer of Care Handoff Completed per policy Notes Mental Status: alert / awake / arousable and participated in evaluation Patient Amnestic to Procedure: Yes Nausea / Vomiting: adequately controlled Pain: adequately controlled Airway Patency, RR, SpO2: stable & adequate BP & HR: stable & adequate Hydration State: stable & adequate Anesthetic Complications: no major complications apparent and Pt Satisfied with anesthetic care
[2024-05-07] MEDS: fentaNYL citrate PF 100 MCG/2 ML VIAL IV PRN (17:00)
[2024-05-07] MEDS ORDERED: METOCLOPRAMIDE HCL INJ 5 MG/ML 2 ML VIAL IV PRN (17:34)
[2024-05-07] MEDS ORDERED: bisacodyL 10 MG SUPP PR PRN (17:34)
[2024-05-07] MEDS ORDERED: NALOXONE HCL 0.4 MG/1 ML VIAL/CARP IV PRN (17:34)
[2024-05-07] MEDS: SODIUM CHLORIDE 0.9% 1,000 ML IV SCH (17:46)
[2024-05-07] MEDS: oxyCODONE HCL IR 5 MG TAB (IMMEDIATE RELEASE) PO PRN (18:20)
--- NOTE | 2024-05-07 19:21 | Hospitalist Progress Note ---
Date of Service May 07, 2024 Assessment & Plan (1) Septic joint of right knee joint: Plan: RIGHT Septic Knee - history of bilateral TKA (~13.5 years ago), s/p R TKA revision ~2022 (due to hardware failure, not infection), who developed swelling, warmth, pain in his R knee, admitted with R TKA PJI s/p DAIR (05/07/24). Patient is febrile, tachycardic, with elevated lactate on presentation to the ER meet sepsis criteria - Outpatient arthrocentesis with elevated leukocytes, cultures positive for pansensitive Enterobacter cloacae - No cardiac, pulmonary, renal, or pulmonary comorbidities. No history of diabetes/insulin use. RCRI 0 points, class I risk. - Ortho consulted > Right Total Knee Arthroplasty, Debridement, antibiotics, and implant retention (DAIR) Procedure, Medial Retinacular Repair, Polyethylene exchange(Right) with Dr. Miner on 05/07. Blood cultures on admission negative x24 hours Given sepsis antibiotics expanded to cefepime/daptomycin - Infectious Disease consulted > - Continue dapto, cefepime for now > Follow-up OR cultures > Anticipate 6 weeks of IV antibiotics via PICC, followed by suppressive PO antibiotics for minimum of 1 year, which can be extended if pt is tolerating the PO antibiotic well. Tachycardia on admission EKG sinus tachycardia Denies anginal pain, history of chest pain. Suspect reactive due to pain and sepsis. Improving with fluid and antipyretics Troponin is negative - Tachycardia resolved Plan Reviewed operative report Reviewed infectious disease recommendations Ordered and reviewed hemoglobin A1c, 5.5% CODE STATUS: Full code Admission and Anticipated Discharge Date Admission Date: May 06, 2024 Subjective Patient seen and evaluated postop in PACU. Reports that he is feeling well postop. Denies chest pain, shortness of breath, nausea, vomiting, lightheadedness, dizziness, or pain. We had a discussion about the source of his infection, explaining that Enterobacter is not a common organism to cause a septic joint infection. He denies recent illness, environmental or work exposures to his knowledge. Physical Exam Physical Exam: General: No acute distress, nondiaphoretic, well-developed, well-nourished. Skin: The skin was without rashes, erythema, edema, or bruising. Cardiac: Regular rate and rhythm without murmurs gallops or rubs. Pulm: Clear to auscultation bilaterally without wheezes, rales or rhonchi. No respiratory distress. 97% on room air. Abdominal: Soft, nontender, nondistended. Bowel sounds present. Neuro: A&O x3. No focal neurological deficits. Extremities: Right lower extremity in postop wrap and immobilizer. Results & Data Results & Data Vital Signs (Past 12 Hours) Vital Signs Temp Pulse Pulse Pulse Resp BP BP 05/07/24 18:30 36.8 C 88 18 177/76 H 05/07/24 18:00 37.3 C 71 16 140/77 05/07/24 17:30 36.7 C 77 14 147/75 H 05/07/24 17:15 37.1 C 69 15 136/71 05/07/24 17:00 88 17 128/73 05/07/24 16:45 73 15 129/71 05/07/24 16:35 78 15 148/74 H 05/07/24 16:25 79 16 133/75 05/07/24 16:15 76 18 120/86 05/07/24 16:05 78 19 129/73 05/07/24 15:58 36.5 C 82 22 138/35 L 05/07/24 12:59 37.1 C 77 20 141/83 H 05/07/24 12:25 64 18 129/72 05/07/24 07:51 81 05/07/24 07:28 83 18 133/66 Pulse Ox O2 Del Method O2 Flow Rate 05/07/24 18:30 97 Room Air 05/07/24 18:00 95 Room Air 05/07/24 17:30 95 Room Air 05/07/24 17:15 95 Room Air 05/07/24 17:00 92 Room Air 05/07/24 16:45 94 Room Air 05/07/24 16:35 97 Room Air 05/07/24 16:25 94 Room Air 05/07/24 16:15 97 Oxymask 5 05/07/24 16:05 100 Oxymask 5 05/07/24 15:58 95 Oxymask 5 05/07/24 12:59 100 Room Air 05/07/24 12:25 98 Room Air 05/07/24 07:51 05/07/24 07:28 96 Room Air Laboratory Results Reviewed CBC Reviewed BMP Reviewed UA Reviewed blood cultures PG Care Time/CCT Total # of Minutes Spent Total Time Spent with Patient: Total time spent is greater than 50% in coordination of care (as documented) at patient's floor/unit and/or counseling patient: Coding Level of Care Code 37839 SUB INP/OBS CARE 2/35MIN Diagnoses Septic joint of right knee joint M00.9 Septic arthritis organism: due to unspecified organism (1) Septic joint of right knee joint Septic arthritis organism: due to unspecified organism Qualified Code(s): M00.9 - Pyogenic arthritis, unspecified
[2024-05-07] MEDS: SENNA 8.6 MG TAB PO SCH (20:52)
[2024-05-07] MEDS: DOCUSATE SODIUM 100 MG CAP PO SCH (20:53)
[2024-05-07] MEDS ORDERED: APIXABAN 2.5 MG TAB PO SCH (21:00)
--- NOTE | 2024-05-07 23:07 | Electrocardiogram Report ---
Test Reason : Blood Pressure : */* mmHG Vent. Rate : 108 BPM Atrial Rate : 108 BPM P-R Int : 144 ms QRS Dur : 88 ms QT Int : 322 ms P-R-T Axes : 17 -2 50 degrees QTcB Int : 431 ms Sinus tachycardia Minimal voltage criteria for LVH, may be normal variant ( R in aVL ) Borderline ECG When compared with ECG of 05-Jul-2023 10:15, Premature ventricular complexes are no longer Present Vent. rate has increased by 44 bpm T wave inversion no longer evident in Inferior leads Confirmed by Dawson Mccain ([id number]) on 05/07/2024 11:06:55 PM Referred By: REFERRED SELF Confirmed By: Dawson Mccain
[2024-05-08] MEDS: MULTIVITAMIN TAB PO SCH (07:49)
--- NOTE | 2024-05-08 08:38 | Orthopedic Progress Note ---
Date of Service May 08, 2024 Assessment & Plan (1) Prosthetic joint infection: Plan: Postop day 1 status post DAIR procedure R TKA; Medial retinacular repair. PT/OT protocols. Weightbearing as tolerated. Patient to use immobilizer with ambulation. May have off in the bed. discussed with the patient that we wanted to not get a lot of flexion at this point and keep the leg in extension to help his retinacular repair heal. DVT prophylaxis-apixaban 2 and half milligrams p.o. twice daily Pain management as written. Plan for dressing change and drain removal by tomorrow. Continue to maintain nica dressing. Operative cultures showing gram-negative bacilli consistent with office aspirate. Aspirate from the office positive for Enterobacter Cloacae. Patient currently on cefepime and daptomycin. Infectious disease team recommending to remain on this combination until final cultures from the operative procedure are finalized. Initial recommendation will be 6 weeks of IV antibiotics. Oral antibiotics for up to a year thereafter. Admission and Anticipated Discharge Date Admission Date: May 06, 2024 Subjective Postop day 1 patient sitting up in bed eating his breakfast. No complaints this morning. Pain is controlled. He states he has a little bit of pressure around the knee itself but otherwise is feeling well. He states that the infectious disease team talk to him to discuss further treatment. No other concerns this morning. Physical Exam Physical Exam: Dressings are clean, dry, and intact. Calves are soft nontender. Neurovascular is intact. Toes are mobile. Hemovac drainage has slowed down and was about 10 cc this morning from the latest shift. Results & Data Vital Signs (Past 12 Hours) Vital Signs Temp Pulse Pulse Resp BP BP Pulse Ox 05/08/24 08:07 37.2 C 73 18 118/64 97 05/08/24 07:46 37.2 C 72 18 118/63 97 05/08/24 03:31 37.1 C 76 18 118/68 95 05/08/24 01:00 05/07/24 23:56 37.2 C 87 20 162/72 H 97 O2 Del Method O2 Del Method 05/08/24 08:07 Room Air 05/08/24 07:46 Room Air 05/08/24 03:31 Room Air 05/08/24 01:00 Room Air 05/07/24 23:56 Room Air
[2024-05-08 08:50] LABS: BUN Creatinine Ratio 16.7 (10-20); C Reactive Protein 14.43 mg/dl (0-0.5); Creatinine Clr Calc Pharmacy 103.3 ml/min; Est GFR (African American) 108.8 ml/min; Est GFR (Non-African American) 93.9 ml/min; Potassium 4.1 mmol/L (3.5-5.1)
--- NOTE | 2024-05-08 08:54 | Hospitalist Progress Note ---
Date of Service May 08, 2024 Assessment & Plan (1) Septic joint of right knee joint: Plan: RIGHT Septic Knee - history of bilateral TKA (~13.5 years ago), s/p R TKA revision ~2022 (due to hardware failure, not infection), who developed swelling, warmth, pain in his R knee, admitted with R TKA PJI s/p DAIR (05/07/24). - Patient is febrile, tachycardic, with elevated lactate on presentation to the ER meet sepsis criteria. - Outpatient arthrocentesis with elevated leukocytes, cultures positive for pansensitive Enterobacter cloacae. - No cardiac, pulmonary, renal, or pulmonary comorbidities. No history of diabetes/insulin use. RCRI 0 points, class I risk. - Ortho consulted > Right Total Knee Arthroplasty, Debridement, antibiotics, and implant retention (DAIR) Procedure, Medial Retinacular Repair, Polyethylene exchange(Right) with Dr. Miner on 05/07. - Blood cultures on admission negative x24 hours - Given sepsis, antibiotics expanded to cefepime/daptomycin - Pain control with Tylenol 650 mg Q4H PRN for mild pain, oxycodone 5 mg Q4H PRN for moderate pain, and morphine 2 mg IV Q4H PRN for severe pain. - Infectious Disease consulted * For ease of dosing on discharge, antibiotic switched from cefepime to ertapenem. * Continue ertapenem 1 g IV Q24H via PICC to complete a 6 week course. Last day of IV antibiotic on 06/17/2024. * Follow-up OR cultures - preliminary results positive for gram negative bacilli , consistent with outpatient aspirate culture. * Anticipate suppressive PO antibiotics for minimum of 1 year after completion of 6 week IV antibiotic course, which can be extended if pt is tolerating the PO antibiotic well. > If susceptible to minocycline, can suppress with minocycline 100 mg PO BID. > Otherwise, would recommend TMP/SMX 1 DS tab PO BID for suppression--in which case due to risks of FAUSTO and hyperkalemia of TMP/SMX, would recommend checking a BMP at least q2 weeks for 1-2 months, then space out lab monitoring once he is confirmed to be stable on this dose. * Check weekly CBC with diff, CMP while on IV antibiotics to monitor for antimicrobial toxicity and ensure it is being faxed to the monitoring provider. Tachycardia on admission - EKG sinus tachycardia - Denies anginal pain, history of chest pain. - Suspect reactive due to pain and sepsis. Improved with fluid and antipyretics. - Troponin is negative - Tachycardia resolved -Checking TSH in the morning (2) Anemia: Plan: Hemoglobin low at 9.0, normocytic-only slight drop since admission hemoglobin of 10.7 but baseline 1 year ago was 14 Could be from ongoing infection along with some acute blood loss from surgery, but check B12, folate, iron studies, and TSH in the morning Follow-up with PCP after discharge Has not had colonoscopy screening as per review of records. If has iron deficiency, would also recommend EGD Plan Patient consented for PICC line today Discussed discharge planning with case management - hopefully patient can be discharged home [facility]09 [facility] Coordinated care with ortho CODE STATUS: Full code VTE PPx: Eliquis 2.5 mg BID Admission and Anticipated Discharge Date Admission Date: May 06, 2024 Supervising Physician Co-Signing Physician Notes PA Supervision Note: I did not personally see or examine the patient today, but I verified all mijares points of DUYEN Roldan's assessment and plan with the following exceptions/additions: None Subjective Patient seen and evaluated at bedside. He reports that he is feeling better today. He reports his pain is controlled, denies any numbness in his leg. He notes that he has been ambulating without much difficulty. He reports that he has been eating his meals without problems. Denies shortness of breath, chest pain, palpitations, cough, abdominal pain, nausea, vomiting, diarrhea, headache, lightheadedness, dizziness. We discussed the change in his antibiotics, getting a PICC placed, and the plan for his antibiotic treatment course. No additional complaints or concerns at this time. Physical Exam Physical Exam: General: No acute distress, nondiaphoretic, well-developed, well-nourished. Skin: The skin was without rashes, erythema, edema, or bruising. Cardiac: Regular rate and rhythm without murmurs gallops or rubs. Pulm: Clear to auscultation bilaterally without wheezes, rales or rhonchi. No respiratory distress. 97% on room air. Abdominal: Soft, nontender, nondistended. Bowel sounds present. Neuro: A&O x3. No focal neurological deficits. Extremities: Right lower extremity in postop wrap and immobilizer. Results & Data Results & Data Vital Signs (Past 12 Hours) Vital Signs Temp Pulse Pulse Resp BP BP Pulse Ox 05/08/24 08:07 37.2 C 73 18 118/64 97 05/08/24 07:46 37.2 C 72 18 118/63 97 05/08/24 03:31 37.1 C 76 18 118/68 95 05/08/24 01:00 05/07/24 23:56 37.2 C 87 20 162/72 H 97 O2 Del Method O2 Del Method 05/08/24 08:07 Room Air 05/08/24 07:46 Room Air 05/08/24 03:31 Room Air 05/08/24 01:00 Room Air 05/07/24 23:56 Room Air Laboratory Results Reviewed CBC Reviewed BMP Reviewed right knee cultures Reviewed blood cultures PG Care Time/CCT Total # of Minutes Spent Total Time Spent with Patient: Total time spent is greater than 50% in coordination of care (as documented) at patient's floor/unit and/or counseling patient: Coding Level of Care Code 23817 SUB INP/OBS CARE 3/50MIN Diagnoses Septic joint of right knee joint M00.9 Septic arthritis organism: due to unspecified organism Anemia D64.9 Anemia type: unspecified type (1) Septic joint of right knee joint Septic arthritis organism: due to unspecified organism Qualified Code(s): M00.9 - Pyogenic arthritis, unspecified (2) Anemia Anemia type: unspecified type Qualified Code(s): D64.9 - Anemia, unspecified
[2024-05-08 09:23] LABS: Basophils # (auto) 0.02 K/uL (0.00-0.20); Basophils % (auto) 0.4 %; Hematocrit (blood only) 26.7 % (42.0-52.0); Immature Granulocytes # (auto) 0.08 K/uL (0.01-0.20); Immature Granulocytes % (auto) 1.6 %; Lymphocytes # (auto) 0.72 K/uL (1.20-3.40); Lymphocytes % (auto) 14.3 %; Mean Corpuscular Hemoglobin 29.9 pg (25.0-34.0); Mean Corpuscular Hgb Conc 33.7 g/dL (32.0-36.0); Mean Corpuscular Volume 88.7 fL (80.0-100.0); Mean Platelet Volume 9.6 fL (9.4-12.4); Monocytes # (auto) 0.73 K/uL (0.11-0.59); Monocytes % (auto) 14.5 %; Neutrophils # (auto) 3.48 K/uL (1.40-6.50); Neutrophils % (auto) 69.2 %; Platelet Count 256 K/uL (130-400); RDW Coefficient of Variation 12.5 % (11.5-14.5); RDW Standard Deviation 40.5 fL (36.4-46.3); Red Blood Count 3.01 M/uL (4.70-6.10); White Blood Count 5.03 K/ul (4.8-10.8)
--- NOTE | 2024-05-08 10:13 | Infectious Disease Progress Nt ---
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 An arthrocentesis was done on 05/05 in clinic, which showed 26,327 WBCs, 93% PMNs, no crystals. Culture grew Enterobacter cloacae. He was directly admitted for PJI. On presentation, he was febrile to 39.4, HR 118. Labs showed WBC 5.76, lactate 2.9. He was started on daptomycin, cefepime. He was taken to the OR on 05/07 for DAIR procedure. ID is consulted for antibiotic recommendations. OR culture growing GNRs, likely to also be Enterobacter cloacae as in his recent knee aspiration. Recommendations: - Stopped daptomycin - Pt will need PICC placement - For ease of dosing on discharge, switched from cefepime to ertapenem 1 g IV q24h to complete a 6 week course through 06/17/24. (Note that if ertapenem is too costly, can instead return to cefepime 2 g IV q8h.) - Check weekly CBC with diff, CMP while on IV antibiotics to monitor for antimicrobial toxicity and ensure it is being faxed to the monitoring provider. - Follow-up non-finalized OR cultures, but anticipate it will grow Enterobacter cloacae, as did the R knee arthrocentesis cx from 05/05. - Following above 6 weeks of IV antibiotics, would transition to suppressive PO antibiotics for a minimum of 1 year, which can be extended if pt is tolerating the PO antibiotic well. I have spoken to the micro lab and requested minocycline susceptibilities on the Enterobacter cloacae, which are being sent out. Please follow-up on these. If susceptible, can suppress with minocycline 100 mg PO BID. Otherwise, would recommend TMP/SMX 1 DS tab PO BID for suppression--in which case due to risks of FAUSTO and hyperkalemia of TMP/SMX, would recommend checking a BMP at least q2 weeks for 1-2 months, then space out lab monitoring once he is confirmed to be stable on this dose. - Would ideally refer pt to outpatient ID locally for follow-up Discussed with the patient and with ortho. Will sign off. Admission and Anticipated Discharge Date Admission Date: May 06, 2024 Subjective Subsequent visit was provided via telemedicine using two-way real-time interactive telecommunication between the patient and the telemedicine provider. For the duration of the visit, the provider was performing the assessment from a different facility than the patient. This includesuse of bluetooth stethoscope forauscultationperformed by the telepresenter that the telemedicine provider can hear if described in the physical exam. [employer] Adviser contact information: Please call [facility] . (Phone Number For Physician Use Only) After establishing a telemedicine visit, patient was: Patient was verified with two unique identifiers, Patient/authorized rep acknowledged consent and understa nding and Gave permission to continue telehealth session Time Spent with Patient: Subsequent => 25 min Afebrile without leukocytosis Went to OR yesterday for DAIR procedure OR culture growing GNRs Review of System A complete ROS was performed and is negative except as mentioned in the HPI. Physical Exam Physical Exam: GEN: Well-appearing, in NAD. RESP: No increased work of breathing EXT: RLE in surgical dressing NEURO: Alert and oriented. Answers all questions appropriately. Speech not slurred. PSYCH: Normal mood, affect appropriate. Results & Data Vital Signs (Past 12 Hours) Vital Signs Temp Pulse Pulse Resp BP BP Pulse Ox 05/08/24 08:07 37.2 C 73 18 118/64 97 05/08/24 07:46 37.2 C 72 18 118/63 97 05/08/24 03:31 37.1 C 76 18 118/68 95 05/08/24 01:00 05/07/24 23:56 37.2 C 87 20 162/72 H 97 O2 Del Method O2 Del Method 05/08/24 08:07 Room Air 05/08/24 07:46 Room Air 05/08/24 03:31 Room Air 05/08/24 01:00 Room Air 05/07/24 23:56 Room Air Laboratory Results Short CBC 05/08/24 Range/Units 08:02 WBC 5.03 (4.8-10.8) K/ul Hgb 9.0 L (14.0-18.0) g/dl Hct 26.7 L (42.0-52.0) % Plt Count 256 (130-400) K/uL BMP 05/08/24 08:02 Sodium 135 L Potassium 4.1 Chloride 104 Carbon Dioxide 25 BUN 12 Creatinine 0.72 Glucose 141 H Calcium 8.0 L Urine 05/07/24 Range/Units 10:02 Urine Color Yellow Urine Appearance Clear (Clear) Urine pH 5.5 (4.5-7.5) Ur Specific [place] 1.020 (1.000-1.030) Urine Protein 1+ H (Negative) Urine Glucose (UA) Negative (Negative) Medications Administered Current Inpatient Medications Acetaminophen (Acetaminophen 325 Mg Tab) 650 mg PO Q4H PRN PRN Reason: Pain or Fever Stop: 06/05/24 22:26 Last Admin: 05/07/24 07:16 Dose: 650 mg Apixaban (Apixaban 2.5 Mg Tab) 2.5 mg PO BID [facility] Stop: 06/08/24 08:59 Bisacodyl (Bisacodyl 10 Mg Supp) 10 mg [place] DAILY PRN PRN Reason: Constipation Stop: 06/06/24 17:33 Docusate Sodium (Docusate Sodium 100 Mg Cap) 100 mg PO BID [facility] Stop: 06/06/24 20:59 Last Admin: 05/08/24 07:50 Dose: 100 mg Cefepime HCl 2,000 mg/ Syringe 20 mls @ 5 mls/min IV Q8H [facility]; Protocol Stop: 06/18/24 01:59 Last Admin: 05/08/24 09:59 Dose: 5 mls/min Lactated Ringer's (Lr) 1,000 mls @ 80 mls/hr IV .[id number] [facility] Stop: 06/05/24 19:29 Last Admin: 05/08/24 07:50 Dose: Not Given Lactated Ringer's (Lr) 1,000 mls @ 15 mls/hr IV .Q24H [facility] Stop: 06/06/24 13:14 Last Infusion: 05/07/24 13:47 Dose: Infused Magnesium Hydroxide (Magnesium Hydroxide Susp 30 Ml Udc) 30 ml PO Q6H PRN PRN Reason: Constipation Stop: 06/06/24 17:33 Metoclopramide HCl (Metoclopramide Hcl Inj 5 Mg/Ml 2 Ml Vial) 10 mg IV Q6H PRN PRN Reason: Nausea And Vomiting Stop: 06/06/24 17:33 Morphine Sulfate (Morphine Sulfate 2 Mg/Ml Carp) 2 mg IV Q4H PRN PRN Reason: Pain, second line Stop: 05/20/24 22:26 Last Admin: 05/07/24 07:15 Dose: 2 mg Multivitamins (Multivitamin Tab) 1 tab PO QAM [facility] Stop: 06/07/24 08:59 Last Admin: 05/08/24 07:49 Dose: 1 tab Naloxone HCl (Naloxone Hcl 0.4 Mg/1 Ml Vial/Carp) 0.1 mg IV Q5M PRN PRN Reason: Oversedation/Resp Depression Stop: 06/06/24 17:33 Ondansetron HCl (Ondansetron Inj 2 Mg/Ml 2 Ml Vial) 4 mg IV Q6H PRN PRN Reason: Nausea And Vomiting Stop: 06/06/24 17:33 Oxycodone HCl (Oxycodone Hcl Ir 5 Mg Tab (Immediate Release)) 5 mg PO Q4H PRN PRN Reason: Pain Stop: 05/21/24 17:33 Last Admin: 05/08/24 07:48 Dose: 5 mg Sennosides (Senna 8.6 Mg Tab) 17.2 mg PO HS [facility] Stop: 06/06/24 20:59 Last Admin: 05/07/24 20:52 Dose: Not Given
[2024-05-08] MEDS: ERTAPENEM SODIUM 1,000 MG in SYRINGE 0 ML IV SCH (12:17)
[2024-05-08 14:14] VITALS: TEMP 98.2
[2024-05-08] MEDS: MAGNESIUM HYDROXIDE SUSP 30 ML UDC PO PRN (17:11)
[2024-05-08 19:06] VITALS: O2SAT 96
[2024-05-09 06:24] LABS: Basophils # (auto) 0.05 K/uL (0.00-0.20); Basophils % (auto) 0.9 %; Eosinophils # (auto) 0.07 K/uL (0.00-0.50); Eosinophils % (auto) 1.3 %; Hematocrit (blood only) 26.7 % (42.0-52.0); Immature Granulocytes # (auto) 0.04 K/uL (0.01-0.20); Immature Granulocytes % (auto) 0.7 %; Lymphocytes # (auto) 1.38 K/uL (1.20-3.40); Mean Corpuscular Hgb Conc 33.7 g/dL (32.0-36.0); Mean Platelet Volume 9.2 fL (9.4-12.4); Monocytes # (auto) 0.85 K/uL (0.11-0.59); Monocytes % (auto) 15.4 %; Neutrophils # (auto) 3.12 K/uL (1.40-6.50); Neutrophils % (auto) 56.7 %; Platelet Count 260 K/uL (130-400); RDW Coefficient of Variation 12.7 % (11.5-14.5); RDW Standard Deviation 41.5 fL (36.4-46.3); White Blood Count 5.51 K/ul (4.8-10.8)
[2024-05-09 06:45] LABS: BUN Creatinine Ratio 18.2 (10-20); Calcium 8.5 mg/dl (8.6-10.3); Creatinine Clr Calc Pharmacy 96.6 ml/min; Est GFR (African American) 105.8 ml/min; Est GFR (Non-African American) 91.3 ml/min; Potassium 4.4 mmol/L (3.5-5.1)
[2024-05-09 06:59] LABS: Thyroid Stimulating Hormone 2.605 uIu/ml (0.300-4.500)
[2024-05-09 07:04] VITALS: RESP 14
[2024-05-09 07:05] LABS: Ferritin 366.9 ng/ml (8-388)
[2024-05-09 07:22] LABS: Folate (Folic Acid),Ser orPlas 14.31 ng/ml (>5.38)
--- NOTE | 2024-05-09 07:46 | Orthopedic Progress Note ---
Date of Service May 09, 2024 Assessment & Plan (1) Prosthetic joint infection: Plan: Postop day 2 status post DAIR procedure R TKA; Medial retinacular repair. PT/OT protocols. Weightbearing as tolerated. Patient to use immobilizer with ambulation. May have off in the bed. discussed with the patient that we wanted to not get a lot of flexion at this point and keep the leg in extension to help his retinacular repair heal. DVT prophylaxis-apixaban 2 and half milligrams p.o. twice daily Pain management as written. Plan for dressing change and drain removal today prior to discharge. Continue to maintain nica dressing. will also order US to r/o DVT. He is currently on Apixaban but discussed if this were positive would dictate duration of it. otherwise patient stable for discharge after the US. Operative cultures showing gram-negative bacilli consistent with office aspirate. Aspirate from the office positive for Enterobacter Cloacae. Patient currently on cefepime and daptomycin. Infectious disease team recommending to remain on this combination until final cultures from the operative procedure are finalized. Initial recommendation will be 6 weeks of IV antibiotics. Oral antibiotics for up to a year thereafter. Admission and Anticipated Discharge Date Admission Date: May 06, 2024 Subjective Postop day 2 status post DAIR procedure R TKA; Medial retinacular repair. denies chest pain, shortness of breath. is having increasing calf pain this am, feel tight and like a spasm Physical Exam Physical Exam: Vital Signs Temp 36.8 C 05/09/24 06:58 Pulse 70 05/09/24 06:58 Resp 14 05/09/24 06:58 BP 123/72 05/09/24 06:58 Pulse Ox 96 05/09/24 06:58 O2 Del Method Room Air 05/09/24 06:58 O2 Flow Rate 5 05/07/24 16:15 Intake & Output 05/08/24 05/09/24 05/09/24 18:59 06:59 18:59 Intake Total 640 / 910 270 / 910 Output Total 0 / 120 120 / 120 750 / 750 Balance 640 / 790 150 / 790 -750 / -750 Intake: Oral 640 / 910 270 / 910 Output: Urine 750 / 750 Drain Output 0 / 120 120 / 120 Right Knee 0 / 120 120 / 120 Other: # Unmeasured Voi ds 1 . Musculoskeletal: Right Knee: NVDI, + calf pain and posterior knee. DP palpable, able to wiggle toes/ankle movement without difficulty. dressing clean dry and intact. Results & Data Vital Signs (Past 12 Hours) Vital Signs Temp Pulse Resp BP Pulse Ox O2 Del Method 05/09/24 06:58 36.8 C 70 14 123/72 96 Room Air Laboratory Results Laboratory Results WBC 5.51 K/ul (4.8-10.8) 05/09/24 06:01 RBC 3.00 M/uL (4.70-6.10) L 05/09/24 06:01 Hgb 9.0 g/dl (14.0-18.0) L 05/09/24 06:01 Hct 26.7 % (42.0-52.0) L 05/09/24 06:01 MCV 89.0 fL (80.0-100.0) 05/09/24 06:01 MCH 30.0 pg (25.0-34.0) 05/09/24 06:01 MCHC 33.7 g/dL (32.0-36.0) 05/09/24 06:01 RDW Std Deviation 41.5 fL (36.4-46.3) 05/09/24 06:01 RDW Coeff of Rachel 12.7 % (11.5-14.5) 05/09/24 06:01 Plt Count 260 K/uL (130-400) 05/09/24 06:01 MPV 9.2 fL (9.4-12.4) L 05/09/24 06:01 Immature Gran % (Auto) 0.7 % 05/09/24 06:01 Neut % (Auto) 56.7 % 05/09/24 06:01 Lymph % (Auto) 25.0 % 05/09/24 06:01 [place] % (Auto) 15.4 % 05/09/24 06:01 Eos % (Auto) 1.3 % 05/09/24 06:01 Baso % (Auto) 0.9 % 05/09/24 06:01 Neut # (Auto) 3.12 K/uL (1.40-6.50) 05/09/24 06:01 Lymph # (Auto) 1.38 K/uL (1.20-3.40) 05/09/24 06:01 [place] # (Auto) 0.85 K/uL (0.11-0.59) H 05/09/24 06:01 Eos # (Auto) 0.07 K/uL (0.00-0.50) 05/09/24 06:01 Baso # (Auto) 0.05 K/uL (0.00-0.20) 05/09/24 06:01 Immature Gran # (Auto) 0.04 K/uL (0.01-0.20) 05/09/24 06:01 ESR 63 mm/hr (0-20) H 05/08/24 08:02 PT 10.7 Seconds (9.0-12.0) 05/06/24 18:12 INR 1.0 (0.9-1.1) 05/06/24 18:12 APTT 29 Seconds (21-31) 05/06/24 18:12 PTT Ratio 1.1 05/06/24 18:12 Sodium 138 mmol/L (136-145) 05/09/24 06:01 Potassium 4.4 mmol/L (3.5-5.1) 05/09/24 06:01 Chloride 104 mmol/L (98-107) 05/09/24 06:01 Carbon Dioxide 28 mmol/L (21-32) 05/09/24 06:01 Anion Gap 6 (3-11) 05/09/24 06:01 BUN 14 mg/dl (6-23) 05/09/24 06:01 Creatinine 0.77 mg/dl (0.6-1.4) 05/09/24 06:01 Est Cr Clr Drug Dosing 96.6 ml/min 05/09/24 06:01 Est GFR ( Amer) 105.8 ml/min 05/09/24 06:01 Est GFR (Non-Af Amer) 91.3 ml/min 05/09/24 06:01 BUN/Creatinine Ratio 18.2 (10-20) 05/09/24 06:01 Glucose 112 mg/dl (70-99(Fasting)) H 05/09/24 06:01 Estimat Average Glucose 111 mg/dl 05/07/24 04:12 Hemoglobin A1c 5.5 % (4.5-5.6) 05/07/24 04:12 Lactate 1.6 mmol/L (0.4-2.0) 05/06/24 20:50 Calcium 8.5 mg/dl (8.6-10.3) L 05/09/24 06:01 Magnesium 1.9 mg/dl (1.7-2.4) 05/06/24 18:12 Iron 20 mcg/dl (35-175) L 05/09/24 06:01 TIBC 259 mcg/dl (250-450) 05/09/24 06:01 Unsaturated IBC 239 mcg/dl (155-355) 05/09/24 06:01 Transferrin % Sat 8 % (20-50) L 05/09/24 06:01 Ferritin 366.9 ng/ml (8-388) 05/09/24 06:01 Total Bilirubin 0.7 mg/dl (0.2-1.0) 05/06/24 18:12 Direct Bilirubin 0.2 mg/dl (0-0.2) 05/06/24 18:12 AST 29 U/L (13-39) 05/06/24 18:12 ALT 46 U/L (7-52) 05/06/24 18:12 Alkaline Phosphatase 117 U/L (34-104) H 05/06/24 18:12 Troponin I High Sens 9.7 pg/ml (0-20) 05/06/24 18:12 C-Reactive Protein 14.43 mg/dl (0-0.5) H 05/08/24 08:02 Total Protein 6.8 gm/dl (6.0-8.3) 05/06/24 18:12 Albumin 3.8 gm/dl (3.4-5.0) 05/06/24 18:12 Vitamin B12 309 pg/ml (180-914) 05/09/24 06:01 Folate 14.31 ng/ml (>5.38) 05/09/24 06:01 Procalcitonin 0.22 ng/ml (0-0.5) 05/06/24 18:12 TSH 2.605 uIu/ml (0.300-4.500) 05/09/24 06:01 Urine Color Yellow 05/07/24 10:02 Urine Appearance Clear (Clear) 05/07/24 10:02 Urine pH 5.5 (4.5-7.5) 05/07/24 10:02 Ur Specific [place] 1.020 (1.000-1.030) 05/07/24 10:02 Urine Protein 1+ (Negative) H 05/07/24 10:02 Urine Glucose (UA) Negative (Negative) 05/07/24 10:02 Urine Ketones Negative (Negative) 05/07/24 10:02 Urine Blood Negative (Negative) 05/07/24 10:02 Urine Nitrite Negative (Negative) 05/07/24 10:02 Urine Bilirubin Negative (Negative) 05/07/24 10:02 Urine Urobilinogen Positive (Negative) H 05/07/24 10:02 Ur Leukocyte Esterase Negative (Negative) 05/07/24 10:02 Urine WBC (Auto) 0-5 /hpf (0-5) 05/07/24 10:02 Urine RBC (Auto) 0-2 /hpf (0-2) 05/07/24 10:02 U Hyaline Cast (Auto) 0-2 /lpf (0-2) 05/07/24 10:02 U Epithel Cells (Auto) 0-2 /hpf (0-2) 05/07/24 10:02 Urine Bacteria (Auto) None Seen (None Seen) 05/07/24 10:02 Blood Type A Positive 05/06/24 18:12 Antibody Screen NEGATIVE 05/06/24 18:12 Impressions Chest X-Ray 05/06/24 17:54 XR chest 1V portable HISTORY: Sepsis COMPARISON: Chest 07/05/2023. FINDINGS: No pneumothorax. No pleural effusions. The heart is normal in size. Mild interstitial thickening which is likely chronic. Calcified granulomas within the lung bases again noted. Cervical spinal fusion hardware and a right shoulder prosthesis are present. Left basilar linear densities are noted. No evidence for pulmonary edema. No acute fractures. IMPRESSION: 1. A few left basilar linear densities. This favors subsegmental atelectasis. A pneumonia could also have a similar appearance in the appropriate clinical setting. 2. Mild diffuse interstitial thickening persists. This is likely chronic. ACT 112: Negative or not required by law. Electronically signed by: Luke Pierce M.D. 05/06/2024 6:24 PM
[2024-05-09] MEDS: APIXABAN 2.5 MG TAB PO SCH (08:38)
--- NOTE | 2024-05-09 09:58 | Ultrasound Report ---
RIGHT LOWER EXTREMITY VENOUS DOPPLER CLINICAL HISTORY: Right calf pain. COMPARISON STUDY: No previous studies for comparison. TECHNIQUE: Sonography of the deep venous system of the right lower extremity was performed. Compress ion and augmentation were evaluated. FINDINGS: The right common femoral, superficial femoral and popliteal veins were compressible. Augme ntation was normal. Flow was shown within the deep calf vessels. Distal portion of the right superfic ial femoral vein was obscured by overlying bandages. IMPRESSION: No evidence of deep venous thrombus within the right lower extremity although distal port ion of the right superficial femoral vein was obscured by overlying bandages. ACT 112: Negative or not required by law. Electronically signed by: Daniel Osman M.D. 05/09/2024 9:56 AM
[2024-05-09 13:16] VITALS: BP 124/72; PULSE 74
--- NOTE | 2024-05-09 15:20 | Discharge Summary ---
Discharge Summary Date of Service May 09, 2024 Principal Dx & Hospital Course #1 = Principal Diagnosis (1) Septic joint of right knee joint: RIGHT Septic Knee - history of bilateral TKA (~13.5 years ago), s/p R TKA revision ~2022 (due to hardware failure, not infection), who developed swelling, warmth, pain in his R knee, admitted with R TKA PJI s/p DAIR (05/07/24). - Patient was febrile, tachycardic, with elevated lactate on presentation to the ER, met sepsis criteria. - Outpatient arthrocentesis with elevated leukocytes, cultures positive for pansensitive Enterobacter cloacae. - No cardiac, pulmonary, renal, or pulmonary comorbidities. No history of diabetes/insulin use. RCRI 0 points, class I risk. - Ortho consulted > Right Total Knee Arthroplasty, Debridement, antibiotics, and implant retention (DAIR) Procedure, Medial Retinacular Repair, Polyethylene exchange(Right) with Dr. Miner on 05/07. - Blood cultures from admission negative x over 48 hours - Pain control with Tylenol 650 mg Q4H PRN for mild pain, oxycodone 5 mg Q4H PRN for moderate pain, and morphine 2 mg IV Q4H PRN for severe pain. - Infectious Disease consulted * For ease of dosing on discharge, antibiotic switched from cefepime to ertapenem. * Continue ertapenem 1 g IV Q24H via PICC to complete a 6 week course. Last day of IV antibiotic on 06/17/2024. * Follow-up OR cultures - preliminary results positive for Enterobacter cloacae, consistent with outpatient aspirate culture. * Anticipate suppressive PO antibiotics for minimum of 1 year after completion of 6 week IV antibiotic course, which can be extended if pt is tolerating the PO antibiotic well. > If susceptible to minocycline, can suppress with minocycline 100 mg PO BID. > Otherwise, would recommend TMP/SMX 1 DS tab PO BID for suppression--in which case due to risks of FAUSTO and hyperkalemia of TMP/SMX, would recommend checking a BMP at least q2 weeks for 1-2 months, then space out lab monitoring once he is confirmed to be stable on this dose. * Check weekly CBC with diff, CMP while on IV antibiotics to monitor for antimicrobial toxicity and ensure it is being faxed to the monitoring provider. - Patient reported right calf pain; venous Doppler negative for DVT. Recommend that PCP follows up on culture results when finalized, as well as minocycline sensitivity testing. Tachycardia on admission - EKG sinus tachycardia - Denies anginal pain, history of chest pain. - Suspect reactive due to pain and sepsis. Improved with fluid and antipyretics. - Troponin is negative - TSH WNL at 2.605 - Tachycardia resolved (2) Anemia: Hemoglobin low at 9.0, normocytic-only slight drop since admission hemoglobin of 10.7 but baseline 1 year ago was 14 - Could be from ongoing infection along with some acute blood loss from surgery - B12, folate, TSH all WNL - Iron studies suggestive of anemia of chronic disease -- Iron low at 20, Transferrin % Sat low at 8. TIBC, unsaturated IBC, and ferritin WNL. - Started ferrous sulfate 325 mg daily on discharge. Recommended patient gets stool soften OTC to prevent constipation. - Follow-up with PCP after discharge - He had colonoscopy 5 years ago and advised to f/u for repeat colonoscopy and possible EGD as well for Fe def anemia Plan CODE STATUS: Full code VTE PPx: Eliquis 2.5 mg BID Notes For Next Care Provider Patient presented with septic right knee. Outpatient arthrocentesis cultures positive for pansensitive Enterobacter cloacae. Patient had DAIR procedure with medial retinacular repair with Dr. Miner on 05/07/2024. Infectious disease was consulted. Continue ertapenem via PICC x 6 weeks, last day of IV antibiotic on 06/17/2024. Will check weekly CBC with differential and CMP while on IV antibiotics. Anticipate suppressive p.o. antibiotics x 1 year. Recommend that PCP calls [place] [facility] and to follow-up on operative culture results when they are finalized, as well as the minocycline sensitivity testing. Medication Changes From Visit Ertapenem 1 g IV Q24H x 6 weeks, last day of IV antibiotics 06/17/24. Started ferrous sulfate 325 mg daily on discharge. Recommended stool softener OTC to prevent constipation. Admission HPI Per Admitting Provider 73-year-old male with past medical history of RIGHT knee infection, hx of replacement with Dr. Miner in the distant past. Had a spacer revision in 2022. Outpatient debridement ~10 days ago. Was on cefadroxil ppx. Outpatient knee tap yesterday/ +knee pain, fevers, chills over the weekend. KNee tap with +WBCs, GNB . Has been on cefadroxil. No missed doses. Feels the knee has greatly worsened over the last 48 hours. Has been told that he should not bend his knee, but has been tender to the touch and is much worse with any movement. Has had fever chills and night sweats. Denies other medical problems. No history of CHF or ischemic disease. Denies any chest pain on exertion in the past few weeks/months. No kidney disease, no lung disease. Denies medication allergies. Does get nauseous postanesthesia. No tobacco use. Rare social alcohol use. No daily use Full code Admission Exam Per Admitting Provider General: A&Ox3. NAD. Cooperative. HEENT: Atraumatic, normocephalic. Pulm: CTAB A&P. -wheezes, -rales, -rhonchi. Symmetrical chest rise. No increased work of breathing. No respiratory distress. Cardiac: RRR, -mrg. Radial pulses intact and symmetrical. Abdominal: Nontender, nondistended, soft. BS present. Ext: RIGHT knee swollen, TTP, with anterior demarcated erythema marked with surgical pen. 2x anterior incisions well healing and without discharge. Discharge Exam General: No acute distress, nondiaphoretic, well-developed, well-nourished. Skin: The skin was without rashes, erythema, edema, or bruising. Cardiac: Regular rate and rhythm without murmurs gallops or rubs. Pulm: Clear to auscultation bilaterally without wheezes, rales or rhonchi. No respiratory distress. 97% on room air. Abdominal: Soft, nontender, nondistended. Bowel sounds present. Neuro: A&O x3. No focal neurological deficits. Extremities: Right lower extremity in dressing, clean, dry, intact. Posterior knee tenderness. DP palpable. Able to wiggle toes. Sensation intact. Discharge Plan Discharge Items Patient Disposition: Home - Home Health Services Reason For Visit: R SEPTIC KNEE Discharge Diagnosis: right septic tka Activity: Per Instructions section Weightbearing: Full weightbearing Weightbearing Comment: must wear immobilizer with ambulation Non-emergency contact: Primary Care Provider and Surgeon Call non-emergency contact if: you have any medication questions, your pain is not controlled, your temperature is above 101.5, your wound has increased redness and your wound has increased drainage Follow-up/Referrals: Robert Miner MD [Surgeon] - (Follow up with Dr. Miner or his PA in 2 weeks from the day of surgery for your first post operative visit. ) Norman Balderas M.D. [Primary Care Provider] - (Follow-up in 1-2 weeks) Diet: Regular Addtl Attending Provider Instructions: You will be weightbearing as tolerated with a walker or crutches. You must wear the immobilizer at all times when up and ambulating. You may have the immobilizer off in bed but only minimal flexion is allowed right now of the knee. You will be receiving daily antibiotics through your PICC line through 06/17/24. Home health services will be taking care of your PICC line. You will be shown how to administer the antibiotics as well. Your blood will be drawn once a week and results will be sent to Dr. Miner. If any changes need to be made to the antibiotic, you will be notified. NINI Dressing - This is a large suction dressing covering your incision. This will help pull any excess drainage from the wound and allow your incision to heal properly. You may shower with this if you can keep the unit outside of the shower. If any bleeding or leakage is noted please call your doctor's office. This will remain on your incision for 10-14 days and then should be removed. This can be done yourself or by the home nursing staff if applicable. The entire unit is disposable once removed. Once removed, keep incision clean and dry. If redness or drainage is noted, please call your surgeon. As discussed with your hospitalist, you will begin daily iron supplementation. Take ferrous sulfate 1 tablet daily. I recommend taking a stool softener (e.g. Docusate) to prevent constipation, which is a side effect of iron supplements. You can get the stool softener [id number] (OTC) at your pharmacy. Pending Studies at Discharge: No Stand-Alone Forms: My [facility] [employer], Smoking Cessation Medications and DC Order Prescriptions: New Eliquis 2.5 mg Tablet 2.5 mg PO BID 30 Days Qty: 60 0RF oxycodone 5 mg Tablet 5 mg PO Q4H PRN (Reason: pain) Qty: 30 0RF ertapenem 1 gram recon soln 1 g IV DAILY 42 Days Qty: 10 0RF ferrous sulfate 325 mg (65 mg iron) tablet,delayed release (DR/EC) 325 mg PO DAILY Qty: 30 0RF docusate sodium 100 mg capsule 100 mg PO BID Qty: 60 0RF Rx Instructions: OTC Held celecoxib 200 mg capsule 200 mg PO BID PRN (Reason: Pain) Hold Instructions: Please hold for now until you are finished taking your blood thinner aspirin 81 mg tablet,delayed release (DR/EC) 81 mg PO DAILY Hold Instructions: Please hold your aspirin at this time. You may resume when you stop taking the Eliquis. (blood thinner) Discontinued cefadroxil 500 mg capsule 500 mg PO BID Rx Instructions: STARTED 04/27/24 FOR 15 DAYS oxycodone 5 mg tablet 5 mg PO Q4H PRN (Reason: Pain) Discharge Orders: Discharge Order (Routine); Ordered 05/09/24 Ordered By: Maegan Jacques Admission Data Admit Date/Time: 05/06/24 19:13 Attending Provider: Maegan Jacques Admit Provider: Schuyler Chamorro Primary Care Provider: Norman Balderas Other Providers: Schuyler Chamorro; Robert Miner; [facility]; [facility] Other Interventions: Discharge Summary Assessment (RN) Last Done: 05/09/24 13:15 Hospital Stay Data Consultations 05/06/24 17:57 ED Decision to Admit Stat 05/06/24 22:27 Consult Orthopedic Surgery Routine 05/07/24 15:50 Consult Infectious Diseases Routine Procedures Performed Operation Date: 05/07/24 07:00 Actual Procedures p Polyethylene exchange and implant retention (DAIR) Procedure, Medial Retinacular Repair, (Right) - Robert Miner MD s Right Total Knee Arthroplasty, Debridement, antibiotics,(Right) - Robert Miner MD Diagnostic Imagining Performed Chest X-Ray 05/06/24 17:54 XR chest 1V portable HISTORY: Sepsis COMPARISON: Chest 07/05/2023. FINDINGS: No pneumothorax. No pleural effusions. The heart is normal in size. Mild interstitial thickening which is likely chronic. Calcified granulomas within the lung bases again noted. Cervical spinal fusion hardware and a right shoulder prosthesis are present. Left basilar linear densities are noted. No evidence for pulmonary edema. No acute fractures. IMPRESSION: 1. A few left basilar linear densities. This favors subsegmental atelectasis. A pneumonia could also have a similar appearance in the appropriate clinical setting. 2. Mild diffuse interstitial thickening persists. This is likely chronic. ACT 112: Negative or not required by law. Electronically signed by: Luke Pierce M.D. 05/06/2024 6:24 PM Venous Doppler Study 05/09/24 07:46 RIGHT LOWER EXTREMITY VENOUS DOPPLER CLINICAL HISTORY: Right calf pain. COMPARISON STUDY: No previous studies for comparison. TECHNIQUE: Sonography of the deep venous system of the right lower extremity was performed. Compression and augmentation were evaluated. FINDINGS: The right common femoral, superficial femoral and popliteal veins were compressible. Augmentation was normal. Flow was shown within the deep calf vessels. Distal portion of the right superficial femoral vein was obscured by overlying bandages. IMPRESSION: No evidence of deep venous thrombus within the right lower extremity although distal portion of the right superficial femoral vein was obscured by overlying bandages. ACT 112: Negative or not required by law. Electronically signed by: Daniel Osman M.D. 05/09/2024 9:56 AM Pending Results Patient Have Any Pending Studies at Discharge: No Discharge Instructions Given to Patient (Per Discharging Provider) You will be weightbearing as tolerated with a walker or crutches. You must wear the immobilizer at all times when up and ambulating. You may have the immobilizer off in bed but only minimal flexion is allowed right now of the knee. You will be receiving daily antibiotics through your PICC line through 06/17/24. Home health services will be taking care of your PICC line. You will be shown how to administer the antibiotics as well. Your blood will be drawn once a week and results will be sent to Dr. Miner. If any changes need to be made to the antibiotic, you will be notified. NINI Dressing - This is a large suction dressing covering your incision. This will help pull any excess drainage from the wound and allow your incision to heal properly. You may shower with this if you can keep the unit outside of the shower. If any bleeding or leakage is noted please call your doctor's office. This will remain on your incision for 10-14 days and then should be removed. This can be done yourself or by the home nursing staff if applicable. The entire unit is disposable once removed. Once removed, keep incision clean and dry. If redness or drainage is noted, please call your surgeon. As discussed with your hospitalist, you will begin daily iron supplementation. Take ferrous sulfate 1 tablet daily. I recommend taking a stool softener (e.g. Docusate) to prevent constipation, which is a side effect of iron supplements. You can get the stool softener [id number] (OTC) at your pharmacy. Supervising Physician Co-Signing Physician Notes DUYEN Supervision Note: I personally saw and examined the patient. I verified all mijares points and agree with DUYEN Roldan with the following exceptions and/or additions: S-patient feeling well, pain is controlled. No bleeding from anywhere that he knows of. Denies shortness of breath or chest pain. Feels ready to go home O- Vitals reviewed Gen: AAOx3, NAD HEENT: Anicteric sclerae, EOMI CV: RRR no mgr nl S1S2 Pulm: CTAB no wcr Abd: +BS soft NT ND no masses or hernias Ext: No edema,, RLE with knee immobilizer in place, RUE with PICC line in place Skin: No rashes, warm/dry Neuro: Full strength throughout [id number] male here with right knee total knee arthroplasty joint infection with Enterobacter Stable for discharge home on long-term antibiotics post surgical debridement and poly exchange Follow-up with orthopedics Weekly labs Follow-up PCP Total Time Total Time Spent Total Time Spent (In Minutes): Greater than 30 minutes spent completing this discharge process including direct patient care, medication reconciliation, documentation, review of labs and images, and coordination of care. Coding Level of Care Code 62741 INP/OBS DISCH >30 MIN Diagnoses Septic joint of right knee joint M00.9 Septic arthritis organism: due to unspecified organism Anemia D64.9 Anemia type: unspecified type
== END 2024-05-09 15:22 | disposition home health service (06) | DRG 466 ==
LOC: ED 17:33 → SUATTDRO 19:13 → EDINP 19:13 → 3N 05-07 17:30